=== PATIENT | female | born 1970 | race Hispanic/Latino ===

== ENCOUNTER 2020-03-31 18:41 | Emergency (ER) | payer SELFPAY ==
[2020-03-31] MEDS ORDERED: METOCLOPRAMIDE 10 MG TABLET ONE (19:04)
[2020-03-31] MEDS ORDERED: ACETAMINOPHEN EXTRA STRENGTH 500 MG TABLET ONE (19:05)
== END 2020-03-31 20:16 | disposition home or self-care (01) ==
LOC: EDH 18:41
DX: G44.209 Tension-type headache, unspecified, not intractable (principal); R11.0 Nausea; Z88.6 Allergy status to analgesic agent; Z90.49 Acquired absence of other specified parts of digestive tract; Z98.890 Other specified postprocedural states